=== PATIENT | male | born 1940 | race Caucasian/White ===

== ENCOUNTER 2018-01-28 01:01 | Inpatient (IN) ==
[2018-01-28 01:16] LABS: Baso # (Auto) 0.1 th/mm3 (0.0-0.2); Baso % (Auto) 0.7 % (0.0-2.0); Eos # (Auto) 0.2 th/mm3 (0.0-0.4); Eos % (Auto) 2.2 % (0.0-4.0); Hematocrit 40.8 % (39.0-51.0); Lymph # (Auto) 1.9 th/mm3 (1.0-4.8); Lymph % (Auto) 24.6 % (9.0-44.0); Mean Corpuscular HGB Conc 34.3 % (32.0-36.0); Mean Corpuscular Hemoglobin 32.3 pg (27.0-34.0); Mean Platelet Volume 7.9 fL (7.0-11.0); Mono # (Auto) 0.8 th/mm3 (0.0-0.9); Mono % (Auto) 10.3 % (0.0-8.0); Neut # (Auto) 4.8 th/mm3 (1.8-7.7); Neut % (Auto) 62.2 % (16.0-70.0); Platelet Count 195 th/mm3 (150-450); Red Blood Count 4.34 mil/mm3 (4.50-5.90); Red Cell Distribution Width 13.8 % (11.6-17.2); White Blood Count 7.7 th/mm3 (4.0-11.0)
--- NOTE | 2018-01-28 01:19 | ED ---
HPI General Chief complaint: Stroke Alert Stated complaint: poss stemi alert Time Seen by Provider: 01/28/18 01:04 History of Present Illness HPI narrative: Patient is a 77 year old male brought in by EMS as a stroke alert. Per EMS, patient got out of bed tonight and fell. He originally just wanted help back into bed, but they noticed he had a left sided facial droop and left sided weakness. EMS states last saw him normal at 10:30PM. Patient has history of atrial fibrillation and is on Coumadin, however, he has not taken it for the past week because he was told his INR was too high. He denies any complaints. He says that nothing is wrong and he would like to go home. He has extensive cardiac history, but no history of stroke in the past. Severity is moderate. Related Data Home Medications Medication Instructions Recorded Confirmed amlodipine 2.5 mg PO BID 10/30/17 10/30/17 escitalopram oxalate 20 mg PO DAILY 10/30/17 10/30/17 lansoprazole 30 mg PO DAILY 10/30/17 10/30/17 metoprolol tartrate 25 mg PO BID 10/30/17 10/30/17 usyhbfuzytvu-frp-rpns-FA-vit K 1 tab PO DAILY 10/30/17 10/30/17 [Multi-Day Plus Minerals] omega-3 acid ethyl esters 1 tab PO BID 10/30/17 10/30/17 tadalafil [Cialis] 20 mg PO DAILY PRN 10/30/17 10/30/17 tamsulosin 0.4 mg PO DAILY 10/30/17 10/30/17 warfarin 2.5 mg PO Q OTHER DAY 10/30/17 10/30/17 warfarin 5 mg PO Q OTHER DAY 10/30/17 10/30/17 zolpidem 1 tab PO HS 10/30/17 10/30/17 Previous Rx's Medication Instructions Recorded atorvastatin 40 mg PO HS 30 Days #30 tab 10/30/17 clopidogrel [Plavix] 75 mg PO DAILY 30 Days #30 tab 10/30/17 Allergies Allergy/AdvReac Type Severity Reaction Status Date / Time No Known Allergies Allergy Uncoded 06/28/15 14:57 Review of Systems ROS: all other systems reviewed are negative Constitutional Denies chills and Denies fever(s) Eyes Denies blurry vision ENT Denies sinus pain and Denies sinus pressure Cardiovascular Denies chest pain, Denies syncope and Denies palpitations Respiratory Denies cough and Denies dyspnea Gastrointestinal Denies abdominal pain, Denies nausea and Denies vomiting Musculoskeletal Reports muscle weakness, Denies numbness and Denies tingling Integumentary/Breasts Denies sores and Denies wounds Neurologic Denies headache(s), Denies numbness, Denies tingling and Denies weakness [facility] Medical History Medical History Atrial fibrillation (Acute) Social History Social History Substance History: Unable to Obtain Smoking Status: Unknown if ever smoked How Often Do You Have a Drink Containing Alcohol: Unable to Obtain Recent Travel in [facility] within the Last 8 Weeks: No Recent Out of Country Travel within the Last 8 Weeks: No Exam Narrative Exam Narrative: GENERAL: Awake and alert, in no acute distress. SKIN: Focused skin assessment warm/dry. No wounds or signs of infection. HEAD: Atraumatic. Normocephalic. EYES: Pupils equal and round and reactive. No scleral icterus. EOMI. ENT: Mucous membranes pink and moist. NECK: Trachea midline. No JVD. CARDIOVASCULAR: Regular rate and rhythm. No murmur appreciated. RESPIRATORY: No accessory muscle use. Clear to auscultation. Breath sounds equal bilaterally. GASTROINTESTINAL: Abdomen soft, non-tender, nondistended. MUSCULOSKELETAL: No obvious deformities. No clubbing. No cyanosis. No edema. NEUROLOGICAL: Awake and alert x3. Left-sided facial droop. 0-5 strength in left upper and lower extremities, no effort against gravity. Right Side showed no significant neurologic defect. PSYCHIATRIC: Appropriate mood and affect; insight and judgment normal. Course Initial Documented Vital Signs Pulse Oximetry 100 01/28/18 01:05 Last Documented Vital Signs Temperature 97.8 F 01/28/18 01:10 Pulse Rate 65 01/28/18 02:50 Respiratory Rate 18 01/28/18 02:50 Blood Pressure 136/66 01/28/18 02:50 Pulse Oximetry 98 01/28/18 02:50 NIH Stroke Scale NIHSS Time Completed NIHSS Time Completed: 01:15 NIH Stroke Scale Level of Consciousness: 0-Alert Orientation Questions: 0-Answers both correct Responds to Commands: 0-Both tasks correct Gaze Eye Movement: 0-Horizontal movement WNL Visual Orta: 0-No visual field defect Facial Movement: 3-Complete unilateral palsy Motor Functions Arm LEFT: 3-No effort against gravity Motor Functions Arm RIGHT: 0-No drift Motor Functions Leg LEFT: 3-No effort against gravity Motor Functions Leg RIGHT: 0-No drift Limb Ataxia: 1-Ataxia in one limb Sensory Loss: 1-Mild sensory loss Best Language: 0-Normal Articulation: 1-Mild dysarthia Extinction or Inattention Sensory: 0-Absent Total: 12 Medical Decision Making MDM Narrative Medical decision making narrative: Patient is a 77 year old male, brought in by EMS as a stroke alert. Exam shows no effort against gravity of the left arm or leg, left sided facial droop. Patient placed on monitor and storage bin tender, taken to CT. CT shows no acute bleed. Patient reportedly takes Coumadin, however, has only taken two doses in the past week. CTA concerning for MCA stroke. I discussed with the patient the risks (including severe bleeding) and benefits of TPA at this time. Patient and would like to have the medication administered. TPA given. Patient taken to IR for further management of MCA clot. Admitted to ICU. Medical Screen Exam Complete: Yes Emergency Medical Condition: Yes Differential Diagnosis Differential Diagnosis: CVA vs TIA vs infection Medical Records Medical records reviewed: Yes I reviewed the patient's medical records. Lab Data Lab results reviewed: Yes I reviewed the patient's lab results. Result diagrams: 01/28/18 01:00 Lab Results 01/28/18 01/28/18 01/28/18 Range/Units 01:00 01:00 01:00 WBC 7.7 (4.0-11.0) th/mm3 RBC 4.34 L (4.50-5.90) mil/mm3 Hgb 14.0 (13.0-17.0) gm/dL POC Hgb (Calc) (13.0-17.0) g/dL Hct 40.8 (39.0-51.0) % POC Hct (39-51.0) % MCV 94.0 (80.0-100.0) fL MCH 32.3 (27.0-34.0) pg MCHC 34.3 (32.0-36.0) % RDW 13.8 (11.6-17.2) % Plt Count 195 (150-450) th/mm3 MPV 7.9 (7.0-11.0) fL Neut % (Auto) 62.2 (16.0-70.0) % Lymph % (Auto) 24.6 (9.0-44.0) % [place] % (Auto) 10.3 H (0.0-8.0) % Eos % (Auto) 2.2 (0.0-4.0) % Baso % (Auto) 0.7 (0.0-2.0) % Neut # (Auto) 4.8 (1.8-7.7) th/mm3 Lymph # (Auto) 1.9 (1.0-4.8) th/mm3 [place] # (Auto) 0.8 (0.0-0.9) th/mm3 Eos # (Auto) 0.2 (0.0-0.4) th/mm3 Baso # (Auto) 0.1 (0.0-0.2) th/mm3 WBC Differential . Differential Comment Auto diff final PT 10.7 D (9.8-11.6) sec INR 1.1 Ratio APTT 26.8 (23.4-31.7) sec Fibrinogen 379 H (227-377) mg/dL POC Sodium (137-144) mmol/L POC Potassium (3.6-5.0) mmol/L POC Chloride (102-111) mmol/L POC BUN (5-21) mg/dL POC Creatinine (0.6-1.3) mg/dL POC Glucose (68-110) mg/dL Total Creatine Kinase 70 (39-308) U/L Troponin I Less than 0.02 L (0.02-0.05) ng/mL Urine Color (Yellw/Straw) Urine Clarity (Clear) Urine pH (5.0-8.5) Ur Specific [place] (1.002-1.035) Urine Protein (Neg-Trace) mg/dL Urine Glucose (UA) (Negative) mg/dL Urine Ketones (Negative) mg/dL Urine Occult Blood (Negative) Urine Nitrate (Negative) Urine Bilirubin (Negative) Urine Urobilinogen (Less than 2) mg/dL Ur Leukocyte Esterase (Negative) Urine RBC (0-3) /hpf Urine WBC (0-5) /hpf Urine Mucus (Occasional) /lpf Micro UA Comment Ur Microscopic Review Urine Culture Comments Urine Opiates Screen (Neg) Ur Barbiturates Screen (Neg) Ur Amphetamines Screen (Neg) U Benzodiazepines Scrn (Neg) Urine Cocaine Screen (Neg) U Cannabinoids Screen (Neg) Blood Type Antibody Screen 01/28/18 01/28/18 01/28/18 Range/Units 01:05 01:40 01:40 WBC (4.0-11.0) th/mm3 RBC (4.50-5.90) mil/mm3 Hgb (13.0-17.0) gm/dL POC Hgb (Calc) 14.6 (13.0-17.0) g/dL Hct (39.0-51.0) % POC Hct 43.0 (39-51.0) % MCV (80.0-100.0) fL MCH (27.0-34.0) pg MCHC (32.0-36.0) % RDW (11.6-17.2) % Plt Count (150-450) th/mm3 MPV (7.0-11.0) fL Neut % (Auto) (16.0-70.0) % Lymph % (Auto) (9.0-44.0) % [place] % (Auto) (0.0-8.0) % Eos % (Auto) (0.0-4.0) % Baso % (Auto) (0.0-2.0) % Neut # (Auto) (1.8-7.7) th/mm3 Lymph # (Auto) (1.0-4.8) th/mm3 [place] # (Auto) (0.0-0.9) th/mm3 Eos # (Auto) (0.0-0.4) th/mm3 Baso # (Auto) (0.0-0.2) th/mm3 WBC Differential Differential Comment PT (9.8-11.6) sec INR Ratio APTT (23.4-31.7) sec Fibrinogen (227-377) mg/dL POC Sodium 140 (137-144) mmol/L POC Potassium 4.1 (3.6-5.0) mmol/L POC Chloride 98 L (102-111) mmol/L POC BUN 22 H (5-21) mg/dL POC Creatinine 0.9 (0.6-1.3) mg/dL POC Glucose 96 (68-110) mg/dL Total Creatine Kinase (39-308) U/L Troponin I (0.02-0.05) ng/mL Urine Color (Yellw/Straw) Urine Clarity (Clear) Urine pH (5.0-8.5) Ur Specific [place] (1.002-1.035) Urine Protein (Neg-Trace) mg/dL Urine Glucose (UA) (Negative) mg/dL Urine Ketones (Negative) mg/dL Urine Occult Blood (Negative) Urine Nitrate (Negative) Urine Bilirubin (Negative) Urine Urobilinogen (Less than 2) mg/dL Ur Leukocyte Esterase (Negative) Urine RBC (0-3) /hpf Urine WBC (0-5) /hpf Urine Mucus (Occasional) /lpf Micro UA Comment Ur Microscopic Review Urine Culture Comments Urine Opiates Screen Neg (Neg) Ur Barbiturates Screen Neg (Neg) Ur Amphetamines Screen Neg (Neg) U Benzodiazepines Scrn Neg (Neg) Urine Cocaine Screen Neg (Neg) U Cannabinoids Screen Neg (Neg) Blood Type A Positive Antibody Screen Negative 01/28/18 Range/Units 01:40 WBC (4.0-11.0) th/mm3 RBC (4.50-5.90) mil/mm3 Hgb (13.0-17.0) gm/dL POC Hgb (Calc) (13.0-17.0) g/dL Hct (39.0-51.0) % POC Hct (39-51.0) % MCV (80.0-100.0) fL MCH (27.0-34.0) pg MCHC (32.0-36.0) % RDW (11.6-17.2) % Plt Count (150-450) th/mm3 MPV (7.0-11.0) fL Neut % (Auto) (16.0-70.0) % Lymph % (Auto) (9.0-44.0) % [place] % (Auto) (0.0-8.0) % Eos % (Auto) (0.0-4.0) % Baso % (Auto) (0.0-2.0) % Neut # (Auto) (1.8-7.7) th/mm3 Lymph # (Auto) (1.0-4.8) th/mm3 [place] # (Auto) (0.0-0.9) th/mm3 Eos # (Auto) (0.0-0.4) th/mm3 Baso # (Auto) (0.0-0.2) th/mm3 WBC Differential Differential Comment PT (9.8-11.6) sec INR Ratio APTT (23.4-31.7) sec Fibrinogen (227-377) mg/dL POC Sodium (137-144) mmol/L POC Potassium (3.6-5.0) mmol/L POC Chloride (102-111) mmol/L POC BUN (5-21) mg/dL POC Creatinine (0.6-1.3) mg/dL POC Glucose (68-110) mg/dL Total Creatine Kinase (39-308) U/L Troponin I (0.02-0.05) ng/mL Urine Color Yellow (Yellw/Straw) Urine Clarity Clear (Clear) Urine pH 7.0 (5.0-8.5) Ur Specific [place] 1.030 (1.002-1.035) Urine Protein Negative (Neg-Trace) mg/dL Urine Glucose (UA) Negative (Negative) mg/dL Urine Ketones Negative (Negative) mg/dL Urine Occult Blood Negative (Negative) Urine Nitrate Negative (Negative) Urine Bilirubin Negative (Negative) Urine Urobilinogen Less than 2 (Less than 2) mg/dL Ur Leukocyte Esterase Negative (Negative) Urine RBC 1 (0-3) /hpf Urine WBC Less than 1 (0-5) /hpf Urine Mucus Few H (Occasional) /lpf Micro UA Comment Cath-culture not ind Ur Microscopic Review Not Reportable Urine Culture Comments Cath-cult not ind Urine Opiates Screen (Neg) Ur Barbiturates Screen (Neg) Ur Amphetamines Screen (Neg) U Benzodiazepines Scrn (Neg) Urine Cocaine Screen (Neg) U Cannabinoids Screen (Neg) Blood Type Antibody Screen Imaging Data Radiologist's impression: Chest X-Ray 01/28/18 01:06 CONCLUSION: No acute findings. Head CT 01/28/18 01:06 CONCLUSION: 1. No acute intracranial abnormalities. Report was called by [ Dr. Carvalho to Dr. Condon at 1:46 AM] Head CTA 01/28/18 01:06 CONCLUSION: 1. 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 Findings called by Dr. Schneider to Dr. Pendleton at 1:57 AM Neck CTA 01/28/18 01:06 CONCLUSION: 1. No carotid stenosis. Mild plaque formation around the carotid bifurcations. ECG Data EKG Prior to Arrival: No Attestation: I personally reviewed and interpreted this ECG as follows: Interpretation: ECG shows afib, rate controlled. Discharge Plan Physicians Team ED Provider: Klaudia Condon Primary Care Provider: Warren Ortez Attending Provider: Sandra Cohn Other Providers: Sunny Parsons Rxs /Orders / Referrals /Forms Prescriptions: No Action amlodipine 2.5 mg Tablet 2.5 mg PO BID RF: 0 tamsulosin 0.4 mg Capsule,Extended Release 24hr 0.4 mg PO DAILY RF: 0 lansoprazole 30 mg Capsule,Delayed Release(Dr/Ec) 30 mg PO DAILY RF: 0 warfarin 5 mg Tablet 5 mg PO Q OTHER DAY RF: 0 warfarin 5 mg Tablet 2.5 mg PO Q OTHER DAY RF: 0 metoprolol tartrate 50 mg Tablet 25 mg PO BID RF: 0 zolpidem 10 mg Tablet 1 tab PO HS RF: 0 escitalopram oxalate 20 mg Tablet 20 mg PO DAILY RF: 0 tadalafil [Cialis] 20 mg Tablet 20 mg PO DAILY PRN (Reason: Erectile Dysfunction) RF: 0 omega-3 acid ethyl esters 1 gram Capsule 1 tab PO BID RF: 0 qooitgsmordc-gkh-fagt-FA-vit K [Multi-Day Plus Minerals] 18 mg iron-400 mcg- 25 mcg Tablet 1 tab PO DAILY RF: 0 atorvastatin 40 mg Tablet 40 mg PO HS 30 Days Qty: 30 RF: 3 clopidogrel [Plavix] 75 mg Tablet 75 mg PO DAILY 30 Days Qty: 30 RF: 11 Discharge Interventions Interventions: ED Discharge Assessment Last Done: 01/28/18 03:23 Status ED Status: Discharged Discharge Information Discharge Date/Time: 01/28/18 02:55
[2018-01-28 01:34] LABS: Activated Partial Thrombo Time 26.8 sec (23.4-31.7); INR 1.1 Ratio; Prothrombin Time 10.7 sec (9.8-11.6)
--- NOTE | 2018-01-28 01:47 | CT ---
EXAM DATE: 01/28/2018 1:18 AM EST AGE/SEX: 77 years / Male INDICATIONS: Stroke Alert. Left sided weakness and slurred speech. CLINICAL DATA: This is the patient's initial encounter. Patient reports that signs and symptoms have been present for 1 day and indicates a pain score of Nonresponsive. MEDICAL/SURGICAL HISTORY: Non-responsive. Non-responsive. RADIATION DOSE: 56.64 CTDI (mGy) COMPARISON: No prior exams available for comparison. TECHNIQUE: CT of the head without contrast. Using automated exposure control and adjustment of the mA and/or kV according to patient size, radiation dose was kept as low as reasonably achievable to ob tain optimal diagnostic quality images. DICOM format image data is available electronically for revi ew and comparison. FINDINGS: Cerebrum: The ventricles are normal for age. No evidence of midline shift, mass lesion, hemorrhage or acute infarction. No extraaxial fluid collections are seen. Posterior Fossa: The cerebellum and brainstem are intact. The 4th ventricle is midline. The cerebe llopontine angle is unremarkable. Extracranial: The visualized portion of the orbits is intact. Skull: The calvaria is intact. No evidence of skull fracture. CONCLUSION: 1. No acute intracranial abnormalities. Report was called by [ Dr. Carvalho to Dr. Condon at 1:46 AM] Electronically signed by: Nathan Carvalho MD 01/28/2018 1:46 AM EST
--- NOTE | 2018-01-28 01:48 | XR ---
EXAM DATE: 01/28/2018 1:42 AM EST AGE/SEX: 77 years / Male INDICATIONS: Short of breath. Stroke alert. CLINICAL DATA: This is the patient's initial encounter. Patient reports that signs and symptoms have been present for 1 day and indicates a pain score of 0/10. MEDICAL/SURGICAL HISTORY: Non-responsive. Non-responsive. COMPARISON: No prior exams available for comparison. FINDINGS: A single AP view of the chest demonstrates the lungs to be symmetrically aerated without evidence of mass, infiltrate or effusion. The cardiomediastinal contours are unremarkable. Osseous structures a re intact. Previous fusion lower cervical spine. CONCLUSION: No acute findings. Electronically signed by: Nathan Carvalho MD 01/28/2018 1:47 AM EST
--- NOTE | 2018-01-28 01:57 | CT ---
EXAM DATE: 01/28/2018 1:32 AM EST AGE/SEX: 77 years / Male INDICATIONS: Left sided weakness with slurred speech. CLINICAL DATA: This is the patient's initial encounter. Patient reports that signs and symptoms have been present for 1 day and indicates a pain score of Nonresponsive. MEDICAL/SURGICAL HISTORY: Non-responsive. Non-responsive. RADIATION DOSE: 10.55 CTDI (mGy) ; Combined studies COMPARISON: [facility], CTA HEAD W CONTRAST W 3D, 01/28/2018. . TECHNIQUE: Volumetric scanning was performed using a multirow detector CT scanner during bolus infus ion of 80 ml Visipaque 320 (iodixanol) nonionic water-soluble contrast as a cumulative dose for mult iple exams. The data was postprocessed with a variety of visualization algorithms including full-vo lume maximum intensity projection, multiplanar sliding thin-slab reformation, curved-planar reformati on, and surface-rendering techniques. Using automated exposure control and adjustment of the mA and/ or kV according to patient size, radiation dose was kept as low as reasonably achievable to obtain op timal diagnostic quality images. DICOM format image data is available electronically for review and comparison. Percent stenosis is calculated using the diameter of the stenotic region over the diameter of the nor mal distal internal carotid artery. FINDINGS: Great vessel origins are patent. Both common carotid arteries are patent. There is atherosclerotic pl aque at both carotid bifurcations without evidence for hemodynamically significant stenosis. Remainde r of the internal carotid arteries are patent. CONCLUSION: 1. No carotid stenosis. Mild plaque formation around the carotid bifurcations. Electronically signed by: Nathan Carvalho MD 01/28/2018 1:55 AM EST
[2018-01-28 01:59] LABS: Creatine Kinase 70 U/L (39-308)
--- NOTE | 2018-01-28 01:59 | CT ---
EXAM DATE: 01/28/2018 1:26 AM EST AGE/SEX: 77 years / Male INDICATIONS: CLINICAL DATA: This is the patient's encounter. Patient reports that signs and symptoms have been pr esent for and indicates a pain score of . MEDICAL/SURGICAL HISTORY: RADIATION DOSE: CTDI (mGy) COMPARISON: No prior exams available for comparison. TECHNIQUE: Volumetric scanning was performed using a multi-row detector CT scanner during bolus infu suzette of ml nonionic water-soluble contrast as a . The data was post processed with a variety of vis ualization algorithms including full volume maximum intensity projection, multi-planar sliding thin s lab reformation, curved planar reformation, and surface rendering techniques. Using automated exposu re control and adjustment of the mA and/or kV according to patient size, radiation dose was kept as l ow as reasonably achievable to obtain optimal diagnostic quality images. DICOM format image data is available electronically for review and comparison. FINDINGS: There is occlusion of the right middle cerebral artery proximally. Temporal branch is patent inferior ly. Left middle cerebral, both anterior cerebral arteries are patent. There is origin right [facility] . Both hospital administrator are patent. CONCLUSION: 1. 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 Findings called by Dr. Schneider to Dr. Ranjith real at 1:57 AM Electronically signed by: Nathan Carvalho MD 01/28/2018 1:58 AM EST
[2018-01-28] MEDS: Sod Chloride 0.9% Inj 1,000 ML IV.CONT SCH (02:20)
[2018-01-28] MEDS ORDERED: Lidocaine 1%/Epinephrine 1:100,000 Inj 20 ML Vial ONE (02:58)
[2018-01-28] MEDS ORDERED: Bisacodyl 10 MG Supp RECTAL PRN (03:00)
[2018-01-28 03:51] LABS: Bilirubin,Urine Negative (Negative); Clarity,Urine Clear (Clear); Color,Urine Yellow (Yellw/Straw); Glucose,Urine (UA) Negative (Negative); Leukocyte Esterase,Urine Negative (Negative); Mucus,Urine Few /lpf (Occasional); Nitrite,Urine Negative (Negative)
[2018-01-28 03:54] LABS: Amphetamine Screen,Urine Neg (Neg); Barbiturate Screen,Urine Neg (Neg); Cannabinoid Screen,Urine Neg (Neg); Cocaine Screen,Urine Neg (Neg)
[2018-01-28 03:59] LABS: Opiate Screen,Urine Neg (Neg)
[2018-01-28] MEDS ORDERED: Chlorhexidine Gluconate 2% 1 Pack (2 Cloths) TOPICAL PRN (04:00)
--- NOTE | 2018-01-28 04:11 | P.RAD ---
Post Procedure Progress Note - Pre Procedure Diagnosis (1) Acute CVA (cerebrovascular accident) - Post Procedure Diagnosis (1) Acute CVA (cerebrovascular accident) - Procedure Information Procedure Date: 01/28/18 Supervising Radiologist: Sanjeev Schneider Jr, MD Proceduralist/Assist: Maggie Baker Anesthesia: General - Plan of Activity Patient to Unit: Critical Care Patient Condition: Fair See PACS Report for procedural detail/treatment. Vascular - Arterial Procedure right Cerebral Procedure: Angiogram, Embolectomy - Additional Information Findings: Acute R M1 MCA occlusion. Successful embolectomy with reestablishment of flow thru the previously occluded segment. No residual clot seen. Plan: To [facility].
[2018-01-28] MEDS ORDERED: Propofol Inj 500 MG/50 ML Vial ONE (04:16)
[2018-01-28] MEDS ORDERED: Alteplase Drip 81 MG in Syringe/Bag 1 EACH IV.SIG ONE (04:22)
[2018-01-28] MEDS ORDERED: Alteplase Bolus 9 MG/9 ML Syringe IV.PUSH ONE (04:22)
[2018-01-28] MEDS ORDERED: niCARdipine Inj 25 MG in Sodium Chlor 0.9% Inj 240 ML IV.CONT PRN (04:23)
--- NOTE | 2018-01-28 04:38 | P.HPCC ---
History of Present Illness Service: Critical care medicine Primary Care Physician: Warren Ortez MD Chief Complaint: Left sided weakness History of Present Illness: Patient is a 77 year past medical history significant for atrial fibrillation on Coumadin, hypertension who was brought to emergency department as a stroke alert. Last seen normal at 10:30 PM yesterday night. Apparently around midnight, patient got out of bed tonight and fell. He left sided facial droop and left sided weakness. He was not taking Coumadin last week due to supratherapeutic INR, restarted just one day before. CT of the head was negative, CTA head showed occlusion of the right middle cerebral artery proximally. Neurology Dr. Pendleton was contacted. Patient received TPA per protocol post TPA was taken to IR for acute R M1 MCA occlusion. Underwent successful embolectomy with reestablishment of flow thru the previously occluded right M1 segment. Patient was intubated for the procedure I evaluated the patient in the ICU postprocedure. He is intubated sedated received neuromuscular paralysis with vecuronium 5 minutes before limiting neuro exam. Start weaning trials based on neuro recovery - Diagnosis (1) Acute right MCA stroke (2) Acute respiratory failure (3) Atrial fibrillation (4) Hypertension Inpatient Certification: I certify that the inpatient services were ordered in accordance with Medicare regulations governing the order. 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 - Medical History Medical History: Medical History (Last Reviewed 01/28/18 @ 04:17 by Klaudia Condon MD) Atrial fibrillation - Tobacco History Smoking Status: Unknown if ever smoked - Alcohol History How Often Do You Have a Drink Containing Alcohol: Unable to Obtain - Substance Use History Substance History: Unable to Obtain - Travel History Recent Travel in the [place] Within the Last 8 Weeks: No Recent Travel Out of the Country Within the Last 8 Weeks: No - Immunization History Tetanus Immunization: Unable to Assess Medications and Allergies Active Medications: Active Medications Albuterol (Duoneb Neb (Prn)) 1 ampul NEB Q2HR NEB PRN PRN Reason: SHORTNESS OF BREATH Bisacodyl (Dulcolax Supp) 10 mg RECTAL DAILY PRN PRN Reason: SEVERE CONSITIPATION Chlorhexidine Gluconate (Chlorhexidine 2% Cloth) 3 pack TOPICAL DAILY@0400 [facility] Stop: 02/02/18 03:59 Chlorhexidine Gluconate (Chlorhexidine 2% Cloth) 3 pack TOPICAL DAILY@0400 PRN PRN Reason: Extra cloth needed Stop: 02/02/18 03:59 Chlorhexidine Gluconate (Peridex 0.12% Oral Kit) 15 ml OROPHARYNG BID@0800, 2000 [facility] Famotidine (Pepcid Pf Inj) 20 mg IV.PUSH Q12HR [facility] Sodium Chloride (Ns Inj) 1,000 mls @ 70 mls/hr IV.CONT .[id number] [facility] Nicardipine HCl 25 mg/ Sodium (Chloride) 250 mls @ 50 mls/hr IV.CONT TITRATE PRN; Protocol PRN Reason: Per Protocol Miscellaneous Medication () 1 each OROPHARYNG 0000,0400,1200,1600 [facility] Sodium Chloride (Ns Flush) 2 ml IV.FLUSH PRN PRN PRN Reason: FLUSH AFTER USING IV ACCESS Sodium Chloride (Ns Flush) 2 ml IV.FLUSH BID [facility] Allergies Allergy/AdvReac Type Severity Reaction Status Date / Time No Known Allergies Allergy Uncoded 06/28/15 14:57 Home Medications Medication Instructions Recorded Confirmed Type amlodipine 2.5 mg PO BID 10/30/17 10/30/17 History escitalopram oxalate 20 mg PO DAILY 10/30/17 10/30/17 History lansoprazole 30 mg PO DAILY 10/30/17 10/30/17 History metoprolol tartrate 25 mg PO BID 10/30/17 10/30/17 History dduwpxaxblua-qys-fwsw-FA-vit K 1 tab PO DAILY 10/30/17 10/30/17 History [Multi-Day Plus Minerals] omega-3 acid ethyl esters 1 tab PO BID 10/30/17 10/30/17 History tadalafil [Cialis] 20 mg PO DAILY PRN 10/30/17 10/30/17 History tamsulosin 0.4 mg PO DAILY 10/30/17 10/30/17 History warfarin 2.5 mg PO Q OTHER DAY 10/30/17 10/30/17 History warfarin 5 mg PO Q OTHER DAY 10/30/17 10/30/17 History zolpidem 1 tab PO HS 10/30/17 10/30/17 History Results - Labs CBC & Chem 7: 01/28/18 01:00 Labs: Short CBC 01/28/18 Range/Units 01:00 WBC 7.7 (4.0-11.0) th/mm3 Hgb 14.0 (13.0-17.0) gm/dL Hct 40.8 (39.0-51.0) % Plt Count 195 (150-450) th/mm3 Cardiac Enzymes 01/28/18 Range/Units 01:00 Total Creatine Kinase 70 (39-308) U/L Troponin I Less than 0.02 L (0.02-0.05) ng/mL Urine 01/28/18 Range/Units 01:40 Urine Color Yellow (Yellw/Straw) Urine Clarity Clear (Clear) Urine pH 7.0 (5.0-8.5) Ur Specific [place] 1.030 (1.002-1.035) Urine Protein Negative (Neg-Trace) mg/dL Urine Glucose (UA) Negative (Negative) mg/dL - Imaging Impressions Chest X-Ray 01/28/18 01:06 CONCLUSION: No acute findings. Head CT 01/28/18 01:06 CONCLUSION: 1. No acute intracranial abnormalities. Report was called by [ Dr. Carvalho to Dr. Condon at 1:46 AM] Head CTA 01/28/18 01:06 CONCLUSION: 1. 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 Findings called by Dr. Schneider to Dr. Pendleton at 1:57 AM Neck CTA 01/28/18 01:06 CONCLUSION: 1. No carotid stenosis. Mild plaque formation around the carotid bifurcations. Exam Vital signs: Vital Signs 01/28/18 01:05 01/28/18 01:06 01/28/18 01:10 Temperature 97.8 F Pulse Rate 78 Respiratory Rate 16 Blood Pressure 160/86 H Pulse Oximetry 100 99 100 01/28/18 01:52 01/28/18 02:10 01/28/18 02:25 Temperature Pulse Rate 50 L 62 60 Respiratory Rate 16 22 Blood Pressure 144/80 H 180/84 H 144/66 H Pulse Oximetry 98 99 98 01/28/18 02:50 Temperature Pulse Rate 65 Respiratory Rate 18 Blood Pressure 136/66 Pulse Oximetry 98 Intake & Output 01/27/18 01/27/18 01/28/18 06:59 18:59 06:59 Weight 105.2 kg Narrative: GENERAL: Patient is intubated currently under neuromuscular paralysis SKIN: Focused skin assessment warm/dry. HEAD: Atraumatic. Normocephalic. EYES: Pupils equal and round and reactive. ENT: Orotracheally intubated NECK: Trachea midline. No JVD. CARDIOVASCULAR: S1-S2 normal no murmurs. No murmur appreciated. RESPIRATORY: PRVC/AC. Clear to auscultation. Breath sounds equal bilaterally. GASTROINTESTINAL: Abdomen soft, nondistended. MUSCULOSKELETAL: No obvious deformities. No clubbing. NEUROLOGICAL: Patient is intubated sedated and neuromuscularly paralyzed post IR procedure. This limits neuro exam. Septic Shock Reassessment Septic shock perfusion: reassessment completed Caprini VTE Risk Assessment Caprini VTE Risk Assessment: Moderate/High Risk (score >= 2) Caprini Risk Assessment Model: Point Value = 1 Point Value = 2 Point Value = 3 Point Value = 5 Age 41-60 Minor surgery BMI > 25 kg/m2 Swollen legs Varicose veins or History of unexplained or recurrent spontaneous Oral contraceptives or hormone replacement Sepsis (< 1 month) Serious lung disease, including pneumonia (< 1 month) Abnormal pulmonary function Acute myocardial infarction Congestive heart failure (< 1 month) History of inflammatory bowel disease Medical patient at bed rest Age 61-74 Arthroscopic surgery Major open surgery (> 45 min) Laparoscopic surgery (> 45 min) Malignancy Confined to bed (> 72 hours) Immobilizing plaster cast Central venous access Age >= 75 History of VTE Family history of VTE Factor V Leiden Prothrombin [id number] Lupus anticoagulant Anticardiolipin antibodies Elevated serum homocysteine Heparin-induced thrombocytopenia Other congenital or acquired thrombophilia Stroke (< 1 month) Elective arthroplasty Hip, pelvis, or leg fracture Acute spinal cord injury (< 1 month) Prophylaxis Regimen: Total Risk Factor Score Risk Level Prophylaxis Regimen 0-1 Low Early ambulation 2 Moderate Order ONE of the following: *Sequential Compression Device (SCD) *Heparin 5000 units SQ BID 3-4 Higher Order ONE of the following medications: *Heparin 5000 units SQ TID *Enoxaparin/Lovenox 40 mg SQ daily (WT < 150 kg, CrCl > 30 mL/min) *Enoxaparin/Lovenox 30 mg SQ daily (WT < 150 kg, CrCl > 10-29 mL/min) *Enoxaparin/Lovenox 30 mg SQ BID (WT < 150 kg, CrCl > 30 mL/min) AND/OR *Sequential Compression Device (SCD) 5 or more Highest Order ONE of the following medications: *Heparin 5000 units SQ TID (Preferred with Epidurals) *Enoxaparin/Lovenox 40 mg SQ daily (WT < 150 kg, CrCl > 30 mL/min) *Enoxaparin/Lovenox 30 mg SQ daily (WT < 150 kg, CrCl > 10-29 mL/min) *Enoxaparin/Lovenox 30 mg SQ BID (WT < 150 kg, CrCl > 30 mL/min) AND *Sequential Compression Device (SCD) Assessment and Plan - Problem List (1) Acute right MCA stroke Code(s): I63.511 - Cerebral infarction due to unspecified occlusion or stenosis of right middle cerebral artery Status: Acute (2) Acute respiratory failure Code(s): J96.00 - Acute respiratory failure, unspecified whether with hypoxia or hypercapnia Status: Acute (3) Atrial fibrillation Code(s): I48.91 - Unspecified atrial fibrillation Status: Chronic (4) Hypertension Code(s): I10 - Essential (primary) hypertension Status: Chronic - Assessment and Plan Plan: NEURO: Acute right MCA stroke Acute right M1 segment occlusion -Propofol and fentanyl for sedation and ventilator synchrony -Status post TPA per protocol -Status post successful embolectomy with reestablishment of flow -Follow-up post TPA protocol -Repeat CT of the head in 24-hour -Antiplatelet therapy, statin after 24 hours -Anticoagulation once cleared by neurology RESP: Acute respiratory failure Anterior airway per anesthesia -PRVC/AC, -Ventilator bundle -DuoNeb as needed -Currently patient is under neuromuscular paralysis, SBT when appropriate CV: Chronic atrial fibrillation Hypertension -Normal saline IV fluids at 75 ml per hour -Keep systolic blood pressure less than 180/105 -Hold amlodipine hold Coumadin -IV labetalol PRN for SBP above 180 GI: -N.p.o., IV famotidine : -Monitor renal function closely. Strict intake output ID: -No antibiotics at this time HEME: -Monitor CBC, coags ENDO: -Electrolyte replacement per protocol PROPH: -Bilateral lower extremity SCDs. Chemical DVT prophylaxis contraindicated at this time due to TPA administration -IV famotidine LINES: -Utilize peripheral IVs, central line if needed CC time 35 min
[2018-01-28] MEDS ORDERED: Labetalol HCl Inj 100 MG/20 ML Vial IV.PUSH PRN (04:54)
[2018-01-28 05:52] LABS: ABG Base Excess 2.7 mmol/L (-2-2); ABG PCO2 40 mmHg (38-42); ABG PO2 88 mmHg (61-120)
[2018-01-28] MEDS ORDERED: Propofol 1000 mg/100 ml Inj 1,000 MG/100 ML BOTTLE IV.CONT PRN (07:22)
[2018-01-28] MEDS: Chlorhexidine 0.12% Oral Kit 15 ML UDC OROPHARYNG SCH ×2 (08:33→20:24)
[2018-01-28] MEDS: Chlorhexidine Gluconate 2% 1 Pack (2 Cloths) TOPICAL SCH (09:02)
--- NOTE | 2018-01-28 09:07 | P.CONNEU ---
History of Present Illness Service: Neurology Primary Care Provider: Warren Ortez MD Chief Complaint: Left sided weakness History of Present Illness: 77-year-old male admitted for stroke. Presented stroke alert with left sided weakness approximately 3-1/2 hours prior to ER arrival. CT brain scan negative for any acute lesion. CTA brain carotids demonstrated right MCA occlusion. He is on Coumadin but had not had it for approximately a week. His INR is 1.1. IV TPA discussed with the spouse risks and benefits discussed including 6% chance of ICH, systemic bleeding, . Alternatives were discussed. She agreed to treatment. Case discussed with ER physician and interventionalist multiple times. He then went for interventional and successful right MCA thrombectomy. 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 - Medical History Medical History: Medical History (Last Reviewed 01/28/18 @ 08:52 by Jem Bosch) Atrial fibrillation - Tobacco History Smoking Status: Unknown if ever smoked - Alcohol History How Often Do You Have a Drink Containing Alcohol: Unable to Obtain - Substance Use History Substance History: Unable to Obtain - Travel History Recent Travel in the [facility] Within the Last 8 Weeks: No Recent Travel Out of the Country Within the Last 8 Weeks: No - Immunization History Tetanus Immunization: Unable to Assess Medications and Allergies Active Medications: Active Medications Albuterol (Duoneb Neb (Prn)) 1 ampul NEB Q2HR NEB PRN PRN Reason: SHORTNESS OF BREATH Bisacodyl (Dulcolax Supp) 10 mg RECTAL DAILY PRN PRN Reason: SEVERE CONSITIPATION Chlorhexidine Gluconate (Chlorhexidine 2% Cloth) 3 pack TOPICAL DAILY@0400 [facility] Stop: 02/02/18 03:59 Chlorhexidine Gluconate (Chlorhexidine 2% Cloth) 3 pack TOPICAL DAILY@0400 PRN PRN Reason: Extra cloth needed Stop: 02/02/18 03:59 Chlorhexidine Gluconate (Peridex 0.12% Oral Kit) 15 ml OROPHARYNG BID@0800, 2000 [facility] Last Admin: 01/28/18 08:33 Dose: 15 ml Famotidine (Pepcid Pf Inj) 20 mg IV.PUSH Q12HR [facility] Sodium Chloride (Ns Inj) 1,000 mls @ 70 mls/hr IV.CONT .[id number] [facility] Last Admin: 01/28/18 02:20 Dose: 70 mls/hr Nicardipine HCl 25 mg/ Sodium (Chloride) 250 mls @ 50 mls/hr IV.CONT TITRATE PRN; Protocol PRN Reason: Per Protocol Propofol (Diprivan 1000 Mg/100 Ml Inj) 1,000 mg in 100 mls @ 3.306 mls/hr IV.CONT TITRATE PRN; Protocol PRN Reason: Per Protocol Last Titration: 01/28/18 08:40 Dose: 0 mcg/kg/min, 0 mls/hr Labetalol HCl (Trandate Inj) 20 mg IV.PUSH Q4H PRN PRN Reason: SBP>180, DBP>100, HR>65 Miscellaneous Medication () 1 each OROPHARYNG 0000,0400,1200,1600 [facility] Sodium Chloride (Ns Flush) 2 ml IV.FLUSH PRN PRN PRN Reason: FLUSH AFTER USING IV ACCESS Sodium Chloride (Ns Flush) 2 ml IV.FLUSH BID [facility] Last Admin: 01/28/18 08:33 Dose: 2 ml Allergies Allergy/AdvReac Type Severity Reaction Status Date / Time No Known Allergies Allergy Uncoded 06/28/15 14:57 Home Medications Medication Instructions Recorded Confirmed Type amlodipine 2.5 mg PO BID 10/30/17 10/30/17 History escitalopram oxalate 20 mg PO DAILY 10/30/17 10/30/17 History lansoprazole 30 mg PO DAILY 10/30/17 10/30/17 History metoprolol tartrate 25 mg PO BID 10/30/17 10/30/17 History nyyuipobfnpr-ocd-ybuc-FA-vit K 1 tab PO DAILY 10/30/17 10/30/17 History [Multi-Day Plus Minerals] omega-3 acid ethyl esters 1 tab PO BID 10/30/17 10/30/17 History tadalafil [Cialis] 20 mg PO DAILY PRN 10/30/17 10/30/17 History tamsulosin 0.4 mg PO DAILY 10/30/17 10/30/17 History warfarin 2.5 mg PO Q OTHER DAY 10/30/17 10/30/17 History warfarin 5 mg PO Q OTHER DAY 10/30/17 10/30/17 History zolpidem 1 tab PO HS 10/30/17 10/30/17 History Exam Vital signs: Vital Signs 01/28/18 01:05 01/28/18 01:06 01/28/18 01:10 Temperature 97.8 F Pulse Rate 78 Respiratory Rate 16 Blood Pressure 160/86 H Pulse Oximetry 100 99 100 01/28/18 01:52 01/28/18 02:10 01/28/18 02:25 Temperature Pulse Rate 50 L 62 60 Respiratory Rate 16 22 Blood Pressure 144/80 H 180/84 H 144/66 H Pulse Oximetry 98 99 98 01/28/18 02:50 01/28/18 04:30 01/28/18 06:00 Temperature Pulse Rate 65 80 98 H Respiratory Rate 18 Blood Pressure 136/66 Pulse Oximetry 98 01/28/18 06:30 01/28/18 06:45 01/28/18 07:00 Temperature Pulse Rate 85 77 75 Respiratory Rate 38 H 17 24 Blood Pressure 148/78 H 137/80 138/67 Pulse Oximetry 99 98 99 01/28/18 07:15 01/28/18 08:32 Temperature Pulse Rate 73 Respiratory Rate 17 16 Blood Pressure 125/72 Pulse Oximetry 99 99 Intake & Output 01/27/18 01/28/18 01/28/18 18:59 06:59 18:59 Output Total 325 / 325 Balance -325 / -325 Weight 105.2 kg 110.2 kg Output: Urine Amount (Catheter) 325 / 325 condom catheter 325 / 325 Other: Weight On Admission 110.2 kg Narrative: GENERAL: in NAD, SKIN: Warm and dry. HEAD: Atraumatic. Normocephalic. ENT: No nasal bleeding or discharge. Mucous membranes pink and moist. NECK: Trachea midline. No JVD. CARDIOVASCULAR: Regular rate and rhythm. RESPIRATORY: No accessory muscle use. GASTROINTESTINAL: Abdomen soft, non-tender, nondistended. MUSCULOSKELETAL: Extremities without clubbing, cyanosis, or edema. No obvious deformities. NEUROLOGICAL: Intubated, off sedation he awakens follows motor request, no gaze deviation pupils very sluggishly reactive appearance of opacities bilateral, appears to have decreased left nasolabial fold, right side 5 out of 5 left lower extremities able raise to gravity strength 3 out of 5, left upper extremity 2-3 out of 5 was able to raise briefly, further sensory cerebellar testing limited PSYCHIATRIC: Intubated - Constitutional no acute distress - Routine HEENT Exam Head: Present: normocephalic Results - Labs CBC & Chem 7: 01/28/18 01:00 Labs: Laboratory Results - last 24 hr 01/28/18 01/28/18 01/28/18 01:00 01:00 01:00 WBC 7.7 RBC 4.34 L Hgb 14.0 POC Hgb (Calc) Hct 40.8 POC Hct MCV 94.0 MCH 32.3 MCHC 34.3 RDW 13.8 Plt Count 195 MPV 7.9 Neut % (Auto) 62.2 Lymph % (Auto) 24.6 [place] % (Auto) 10.3 H Eos % (Auto) 2.2 Baso % (Auto) 0.7 Neut # (Auto) 4.8 Lymph # (Auto) 1.9 [place] # (Auto) 0.8 Eos # (Auto) 0.2 Baso # (Auto) 0.1 WBC Differential . Differential Comment Auto diff final PT 10.7 D INR 1.1 APTT 26.8 Fibrinogen 379 H Puncture Site Patient Temperature O2 Saturation ABG pH ABG pCO2 ABG pO2 ABG HCO3 ABG O2 Content ABG Base Excess ABG Methemoglobin Hemoglobin Carboxyhemoglobin O2 Delivery Device Vent Setting Inspired O2 Critical Value POC Sodium POC Potassium POC Chloride POC BUN POC Creatinine POC Glucose Total Creatine Kinase 70 Troponin I Less than 0.02 L Urine Color Urine Clarity Urine pH Ur Specific [place] Urine Protein Urine Glucose (UA) Urine Ketones Urine Occult Blood Urine Nitrate Urine Bilirubin Urine Urobilinogen Ur Leukocyte Esterase Urine RBC Urine WBC Urine Mucus Micro UA Comment Ur Microscopic Review Urine Culture Comments Urine Opiates Screen Ur Barbiturates Screen Ur Amphetamines Screen U Benzodiazepines Scrn Urine Cocaine Screen U Cannabinoids Screen Blood Type Antibody Screen 01/28/18 01/28/18 01/28/18 01:05 01:40 01:40 WBC RBC Hgb POC Hgb (Calc) 14.6 Hct POC Hct 43.0 MCV MCH MCHC RDW Plt Count MPV Neut % (Auto) Lymph % (Auto) [place] % (Auto) Eos % (Auto) Baso % (Auto) Neut # (Auto) Lymph # (Auto) [place] # (Auto) Eos # (Auto) Baso # (Auto) WBC Differential Differential Comment PT INR APTT Fibrinogen Puncture Site Patient Temperature O2 Saturation ABG pH ABG pCO2 ABG pO2 ABG HCO3 ABG O2 Content ABG Base Excess ABG Methemoglobin Hemoglobin Carboxyhemoglobin O2 Delivery Device Vent Setting Inspired O2 Critical Value POC Sodium 140 POC Potassium 4.1 POC Chloride 98 L POC BUN 22 H POC Creatinine 0.9 POC Glucose 96 Total Creatine Kinase Troponin I Urine Color Urine Clarity Urine pH Ur Specific [place] Urine Protein Urine Glucose (UA) Urine Ketones Urine Occult Blood Urine Nitrate Urine Bilirubin Urine Urobilinogen Ur Leukocyte Esterase Urine RBC Urine WBC Urine Mucus Micro UA Comment Ur Microscopic Review Urine Culture Comments Urine Opiates Screen Neg Ur Barbiturates Screen Neg Ur Amphetamines Screen Neg U Benzodiazepines Scrn Neg Urine Cocaine Screen Neg U Cannabinoids Screen Neg Blood Type A Positive Antibody Screen Negative 01/28/18 01/28/18 01:40 05:39 WBC RBC Hgb POC Hgb (Calc) Hct POC Hct MCV MCH MCHC RDW Plt Count MPV Neut % (Auto) Lymph % (Auto) [place] % (Auto) Eos % (Auto) Baso % (Auto) Neut # (Auto) Lymph # (Auto) [place] # (Auto) Eos # (Auto) Baso # (Auto) WBC Differential Differential Comment PT INR APTT Fibrinogen Puncture Site Left brachial Patient Temperature 98.6 O2 Saturation 95 ABG pH 7.44 H ABG pCO2 40 ABG pO2 88 ABG HCO3 27 H ABG O2 Content 20.5 H ABG Base Excess 2.7 H ABG Methemoglobin 1.2 Hemoglobin 15.3 Carboxyhemoglobin 1.4 O2 Delivery Device Ventilator Vent Setting See comment Inspired O2 40 Critical Value No POC Sodium POC Potassium POC Chloride POC BUN POC Creatinine POC Glucose Total Creatine Kinase Troponin I Urine Color Yellow Urine Clarity Clear Urine pH 7.0 Ur Specific [place] 1.030 Urine Protein Negative Urine Glucose (UA) Negative Urine Ketones Negative Urine Occult Blood Negative Urine Nitrate Negative Urine Bilirubin Negative Urine Urobilinogen Less than 2 Ur Leukocyte Esterase Negative Urine RBC 1 Urine WBC Less than 1 Urine Mucus Few H Micro UA Comment Cath-culture not ind Ur Microscopic Review Not Reportable Urine Culture Comments Cath-cult not ind Urine Opiates Screen Ur Barbiturates Screen Ur Amphetamines Screen U Benzodiazepines Scrn Urine Cocaine Screen U Cannabinoids Screen Blood Type Antibody Screen - Imaging Impressions Chest X-Ray 01/28/18 01:06 CONCLUSION: No acute findings. Head CT 01/28/18 01:06 CONCLUSION: 1. No acute intracranial abnormalities. Report was called by [ Dr. Carvalho to Dr. Condon at 1:46 AM] Head CTA 01/28/18 01:06 CONCLUSION: 1. 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 Findings called by Dr. Schnedier to Dr. Pendleton at 1:57 AM Neck CTA 01/28/18 01:06 CONCLUSION: 1. No carotid stenosis. Mild plaque formation around the carotid bifurcations. Review/Management - Diagnosis (1) Acute right MCA stroke Code(s): I63.511 - Cerebral infarction due to unspecified occlusion or stenosis of right middle cerebral artery Status: Acute Current Visit: Yes (2) Acute respiratory failure Code(s): J96.00 - Acute respiratory failure, unspecified whether with hypoxia or hypercapnia Status: Acute Current Visit: Yes (3) Atrial fibrillation Code(s): I48.91 - Unspecified atrial fibrillation Status: Chronic Current Visit: Yes (4) Hypertension Code(s): I10 - Essential (primary) hypertension Status: Chronic Current Visit: Yes - Review/Management Plan: Status post IV TPA, right MCA thrombectomy Likely cardioembolic infarct Appears to have some improvement since initial presentation where he is hemiplegic and unable to move the left side leg greater than arm Recommendations Post TPA order set Blood pressure less than 180/100 No blood thinners for 24 hours post TPA Follow-up CT brain noncontrast 24-hour nam MRI brain 2D echo Fasting lipids HbA1c SCDs Extubation as feasible per critical care Discussed with patient spouse Appreciate critical care
--- NOTE | 2018-01-28 09:46 | ECG ---
Date Performed: 01/28/2018 Time Performed: 01:29:16 PTAGE: 77 years EKG: ATRIAL FIBRILLATION WITH SLOW VENTRICULAR RESPONSE MARKED LEFT AXIS DEVIATION LOW QRS VOLTA GE IN PRECORDIAL LEADS PATTERN CONSISTENT WITH PULMONARY DISEASE INCOMPLETE RIGHT BUNDLE BRANCH BLOCK SEPTAL MYOCARDIAL INFARCTION ABNORMAL ECG NO PREVIOUS TRACING DOCTOR: Tobi Pepper Interpretating Date/Time 01/28/2018 09:45:17
[2018-01-28 10:09] LABS: Chol/HDL Ratio 5.31 Ratio; HDL Cholesterol 26.7 mg/dL (40.0-60.0)
[2018-01-28] MEDS: Famotidine PF Inj 20 MG/2 ML Vial IV.PUSH SCH ×2 (11:23→20:27)
--- NOTE | 2018-01-28 11:43 | IR ---
EXAM DATE: 01/28/2018 10:09 AM EST AGE/SEX: 77 years / Male INDICATIONS: Right M1 and proximal M2 occlusion with acute CVA and left hemiparesis. Patient approxi mately 3 hours out. CLINICAL DATA: This is the patient's initial encounter. Patient reports that signs and symptoms have been present for 1 day and indicates a pain score of 0/10. MEDICAL/SURGICAL HISTORY: . A-Fib, CAD, HTN, BPH, Kidney Stones, Cataracts, Cervical spine dege neration, Diverticulosis, Hyperlipidemia . Colonoscopy, Diagnostic Esophagogastroduodenoscopy, Neck Surgery, Lithotripsy, Tonsillectomy. COMPARISON: No prior exams available for comparison. FLUORO TIME (min): 6.3 IMAGE SERIES: 6 ACCESS SITE: Right femoral artery CONTRAST (cc): 45 Visipaque (iodixanol) MEDICATION(S): 2 g cefazolin (Ancef) IV Anesthesia and pain control was provided by the Anesthesia department. DEVICE(S): Right Middle Cerebral (M1), React 68 Catheter. Right common femoral artery Angio-Seal 6 FR . . TIMELINE: Interventional Team Called: 0206 Interventional Team Arrived: 0220 Interventional Team Ready 0220 Patient Arrival: 0300 Groin Puncture: [phone] Recanalization: 0349 PROCEDURE : 1. Ultrasound-guided puncture of the access site. 2. Angiography of the access site prior to closure device. 3. Conscious sedation with continuous EKG and Oximetry monitoring. 4. Percutaneous closure of the access site. 5. Angiography of the right internal carotid artery 6. Mechanical thrombectomy of the right M1 and proximal M2 I reviewed the patient's prior CTA 01/28/2018. There is occlusion of the right M1 segment which is re latively short in this patient with extension into the proximal M2 branches. The risks, benefits and alternatives to the procedure were explained and verbal and written consent was obtained. The site wa s prepped in sterile fashion. Full sterile technique was used, including cap, mask, sterile gloves an d gown and a large sterile sheet. Hand hygiene and 2% chlorhexidine and/or betadine/alcohol prep was utilized per protocol for cutaneous antisepsis. The skin and subcutaneous tissues were infiltrated wi th local anesthetic solution. Sterile gel and sterile probe cover were utilized for ultrasound omar nce. With ultrasound and fluoroscopic guidance the right common femoral artery was punctured and a vascula r sheath was placed. Angiography of the common femoral artery was performed for evaluation prior to p ercutaneous closure device placement. A diagnostic catheter was placed into the right internal carotid artery and angiography was performed over the head to confirm vessel occlusion. These diagnostic images show a complete occlusion of the right M1 distally with extension into the proximal M2 branches. A single temporal branch remains hope nt. Subsequent to this a guidewire was placed into the distal cervical internal carotid artery and a guide catheter was placed to the level of the skull base. Through this a large bore suction catheter was placed in the face of the clot and suction was performed for 90 seconds. With suction still appli ed the catheter was removed in one piece. Followup angiography demonstrates denominational of flow with TICI 3 flow. There is restored antegrade f low through the right middle cerebral artery territory. No residual thrombus observed. Hemostasis was obtained with the prescribed medicated closure device. Conscious sedation was performe d with the prescribed dosages and duration as above. EKG and oximetry remained stable throughout the procedure. The patient was sent to post anesthesia recovery in stable condition. CONCLUSION: 1. Acute right MCA occlusion with extension into the proximal M2 branches with successful thrombecto my and reestablishment of flow with TICI score 3. Electronically signed by: Sanjeev Schneider MD 01/28/2018 11:42 AM EST
[2018-01-28 13:34] LABS: Hemoglobin A1c 5.2 % (4.3-6.0)
--- NOTE | 2018-01-28 16:59 | MR ---
EXAM DATE: 01/28/2018 4:53 PM EST AGE/SEX: 77 years / Male INDICATIONS: Left sided weakness. CLINICAL DATA: This is the patient's initial encounter. Patient reports that signs and symptoms have been present for 1 day and indicates a pain score of 0/10. MEDICAL/SURGICAL HISTORY: Hypertension. Tonsillectomy. Fusion, cervical. Coronary artery sten t. COMPARISON: No prior exams available for comparison. TECHNIQUE: 3D [id number] MRA was performed. Source images, multiplanar STS MIP, and 3D volum e MIP reconstructions were reviewed. FINDINGS: There is excellent visualization of the major intracranial arteries out to the second-order branch ve ssels There is occlusion of the upper most portion of the right vertebral artery. The upper cervical, petrous, cavernous and supraclinoid internal carotid arteries are patent without significant stenosi s or occlusion. The anterior middle cerebral arteries are also patent without significant stenosis or occlusion. Bilateral posterior cerebral arteries are patent without significant stenosis or occlusio n. Bilateral patent posterior communicating arteries are noted. The basilar artery is patent. No aneu rysm or vascular malformation is noted. CONCLUSION: 1. Occlusion of the upper most portion of the right vertebral artery. 2. No evidence of anterior cerebral circulation stenosis, occlusion or aneurysm. 3. Patent bilateral posterior communicating arteries. Electronically signed by: Luis A Weiner MD 01/28/2018 4:57 PM EST
--- NOTE | 2018-01-28 17:08 | MR ---
EXAM DATE: 01/28/2018 4:55 PM EST AGE/SEX: 77 years / Male INDICATIONS: Left sided weakness. CLINICAL DATA: This is the patient's initial encounter. Patient reports that signs and symptoms have been present for 1 day and indicates a pain score of 0/10. MEDICAL/SURGICAL HISTORY: Hypertension. Tonsillectomy. Coronary artery stent. Fusion, cervica l. COMPARISON: [facility], MRA HEAD W/O CONTRAST, 01/28/2018. . TECHNIQUE: Multiplanar, multisequence examination of the brain was performed without contrast. FINDINGS: Cerebrum: Moderate-sized area of acute infarction involving the right basal ganglia is noted. No acu te hemorrhage, midline shift or extra-axial bleed is noted. The ventricles are normal in size, shape and position for the patient's age. White Matter: Minimal scattered periventricular white matter small vessel ischemic changes are noted . Posterior Fossa: The cerebellum and brainstem are intact. The 4th ventricle is midline. The cerebel lopontine angle is unremarkable. The cerebellar tonsils are normal in position. Diffusion Imaging: No focal areas of restricted diffusion are seen. No evidence of acute infarction . Extracranial: The visualized portions of the orbits and paranasal sinuses are unremarkable. CONCLUSION: 1. Moderately-sized area of acute infarction involving the right basal ganglia. 2. Minimal scattered periventricular white matter small vessel ischemic changes. 3. No acute hemorrhage, midline shift or extra-axial bleed. Electronically signed by: Luis A Weiner MD 01/28/2018 5:07 PM EST
--- NOTE | 2018-01-28 17:32 | ECHRPT ---
Indication: CVA/TIA CONCLUSIONS Normal left ventricular size. Mild concentric left ventricular hypertrophy. The left ventricular systolic function is normal with an estimated ejection fraction in the range of 55-60%. The left atrial size is mildly dilated. Trace mitral valve regurgitation. There is trace tricuspid valve regurgitation. The estimated pulmonary arterial pressure is 44 mmHg. The pulmonary valve is not well visualized. The inferior vena cava was not well visualized. There is a small pericardial effusion present. BP: 141 / 65 HR: 100 Rhythm: MEASUREMENTS (Male / Female) Normal Values Technical Quality:Technically difficult study 2D ECHO LV Diastolic Diameter PLAX 5.0 cm 4.2 - 5.9 / 3.9 - 5.3 cm LV Systolic Diameter PLAX 3.3 cm IVS Diastolic Thickness 1.2 cm 0.6 - 1.0 / 0.6 - 0.9 cm LVPW Diastolic Thickness 1.1 cm 0.6 - 1.0 / 0.6 - 0.9 cm LV Relative Wall Thickness 0.5 RV Internal Dim ED PLAX 3.5 cm LVOT Diameter 2.1 cm Aortic Root Diameter 3.2 cm LA Systolic Diameter LX 4.3 cm 3.0 - 4.0 / 2.7 - 3.8 cm M-MODE AV Cusp Separation MM 2.1 cm DOPPLER AV Peak Velocity 147.0 cm/s AV Peak Gradient 8.6 mmHg LVOT Peak Velocity 120.0 cm/s LVOT Peak Gradient 5.8 mmHg AV Area Cont Eq pk 2.8 cm Mitral E Point Velocity 85.9 cm/s LV E' Lateral Velocity 11.1 cm/s Mitral E to LV E' Lateral Ratio 7.7 LV E' Septal Velocity 9.2 cm/s Mitral E to LV E' Septal Ratio 9.4 TR Peak Velocity 293.0 cm/s TR Peak Gradient 34.3 mmHg Right Atrial Pressure 10.0 mmHg Pulmonary Artery Systolic Pressu 44.3 mmHg Right Ventricular Systolic Press 44.3 mmHg PV Peak Velocity 73.3 cm/s PV Peak Gradient 2.1 mmHg FINDINGS LEFT VENTRICLE Normal left ventricular size. Mild concentric left ventricular hypertrophy. The left ventricular systolic function is normal with an estimated ejection fraction in the range of 55-60%. RIGHT VENTRICLE Normal right ventricular size and systolic function. LEFT ATRIUM The left atrial size is mildly dilated. RIGHT ATRIUM The right atrial size is normal. ATRIAL SEPTUM Normal atrial septal thickness without atrial level shunting by limited color doppler interrogation. AORTA The aortic root and proximal ascending aorta are normal in size on limited imaging. MITRAL VALVE Trace mitral valve regurgitation. AORTIC VALVE Trileaflet aortic valve. No aortic valve stenosis or regurgitation. TRICUSPID VALVE There is trace tricuspid valve regurgitation. The estimated pulmonary arterial pressure is 44 mmHg. PULMONARY VALVE The pulmonary valve is not well visualized. VESSELS The inferior vena cava was not well visualized. PERICARDIUM There is a small pericardial effusion present. Tobi Pepper MD, FACC (Electronically Signed) Final Date:28 January 2018 17:32
[2018-01-28] MEDS ORDERED: Phenol 1.4% 180 ML Spray Bottle OROPHARYNG PRN (17:35)
[2018-01-29] MEDS: Sod Chloride 0.9% Inj 1,000 ML IV.CONT SCH ×2 (00:30→09:28)
[2018-01-29] MEDS: Chlorhexidine Gluconate 2% 1 Pack (2 Cloths) TOPICAL SCH (03:02)
--- NOTE | 2018-01-29 05:14 | CT ---
EXAM DATE: 01/29/2018 4:45 AM EST AGE/SEX: 77 years / Male INDICATIONS: Post TPA. Post embolectomy. CLINICAL DATA: This is the patient's subsequent encounter. Patient reports that signs and symptoms h ave been present for 1 day and indicates a pain score of 0/10. MEDICAL/SURGICAL HISTORY: Cerebrovascular disease. . Embolectomy. RADIATION DOSE: 56.35 CTDI (mGy) COMPARISON: [facility] – [place], [place] HEAD W/O CONTRAST, 01/28/2018. . TECHNIQUE: CT of the head without contrast. Using automated exposure control and adjustment of the mA and/or kV according to patient size, radiation dose was kept as low as reasonably achievable to ob tain optimal diagnostic quality images. DICOM format image data is available electronically for revi ew and comparison. FINDINGS: There is an evolving infarct in the right basal ganglia, especially the caudate lobe and globus palli dus. Mild localized mass effect without significant midline shift. No hydrocephalus. Small punctate h emorrhage noted posteriorly in the subinsular region measuring about 4 mm. CONCLUSION: 1. Infarct of the right basal ganglia. Punctate hemorrhage measuring about 4 mm in diameter posterio r right subinsular cortex. No significant mass effect. . Electronically signed by: Nathan Carvalho MD 01/29/2018 5:13 AM EST
[2018-01-29] MEDS: Famotidine PF Inj 20 MG/2 ML Vial IV.PUSH SCH ×2 (08:37→20:01)
[2018-01-29] MEDS: Chlorhexidine 0.12% Oral Kit 15 ML UDC OROPHARYNG SCH ×2 (08:37→19:39)
[2018-01-29] MEDS: Oral Hygiene Kit OROPHARYNG SCH ×3 (08:38→18:35)
--- NOTE | 2018-01-29 15:08 | P.PNIM ---
Subjective Interval history: DRAFT NOTE+ Physical Exam Vital signs: Last Vital Signs Temp 98.1 F 01/29/18 12:00 Pulse 77 01/29/18 12:00 Resp 31 H 01/29/18 12:00 BP 129/58 L 01/29/18 12:00 Pulse Ox 97 01/29/18 12:00 Narrative: GENERAL: This is a well-nourished, well-developed patient, in no apparent distress. CARDIOVASCULAR: Regular rate and rhythm without murmurs, gallops, or rubs. RESPIRATORY: Clear to auscultation. Breath sounds equal bilaterally. No wheezes , rales, or rhonchi. GASTROINTESTINAL: Abdomen soft, non-tender, nondistended. Normal active bowel sounds MUSCULOSKELETAL: Extremities without clubbing, cyanosis, or edema. NEURO: Alert & Oriented x4 to person, place, time, situation. Moves all ext x4 Results Labs CBC & Chem 7: 01/28/18 01:00 Assessment and Plan Assessment (1) Acute right MCA stroke: Code(s): I63.511 - Cerebral infarction due to unspecified occlusion or stenosis of right middle cerebral artery Status: Acute (2) Acute respiratory failure: Code(s): J96.00 - Acute respiratory failure, unspecified whether with hypoxia or hypercapnia Status: Deleted (3) Atrial fibrillation: Code(s): I48.91 - Unspecified atrial fibrillation Status: Chronic (4) Hypertension: Code(s): I10 - Essential (primary) hypertension Status: Chronic Plan right MCA STROKE - 77 Y/O m with h/o A. fib admitted to [facility] 01/28/18 - Pt presented with 3.5 hours of Left sideded weakness - Pt off of his coumadin x 1 week - INR 1.1 on admission - Pt received IV TPA (01/28) - Pt underwent successful right MCA thrombectomy by IR Chest X-Ray 01/28/18 No acute findings. Head CT 01/28/18 No acute intracranial abnormalities. Head CTA 01/28/18 1. 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 Neck CTA 01/28/18 1. No carotid stenosis. Mild plaque formation around the carotid bifurcations. MRI brain (01/28/18) 1. Moderately-sized area of acute infarction involving the right basal ganglia. 2. Minimal scattered periventricular white matter small vessel ischemic changes. 3. No acute hemorrhage, midline shift or extra-axial bleed. MRA brain (01/28/18) 1. Occlusion of the upper most portion of the right vertebral artery. 2. No evidence of anterior cerebral circulation stenosis, occlusion or aneurysm. 3. Patent bilateral posterior communicating arteries. Echocardiogram (01/28/18) EF 55-60% Repeat CT brain (01/29/18) 1. Infarct of theright basal ganglia. Punctate hemorrhage measuring about 4 mm in diameter posterior right subinsular cortex. No significant mass effect. - LDL 96 (01/28/18) - comgmt with Neurology - start lipitor 20mg hs - TPA, over 24 hours ago - lovenox 100mg x once - will discuss anticoagulation with Neurology 01/30 - likely Xarelto or other novel anticoagulant. Progress Note: Quality VTE Deep Vein Thrombosis/Pulmonary Embolism Present on Admission: No _ (1) Acute respiratory failure Qualifiers: Respiratory failure complication: (2) Atrial fibrillation Qualifiers: Atrial fibrillation type: (3) Hypertension Qualifiers: Hypertension type:
[2018-01-29] MEDS ORDERED: Enoxaparin Inj 100 MG/ML Syringe SQ ONE (17:59)
--- NOTE | 2018-01-29 19:34 | P.PNNEU ---
Subjective Subjective Comments: " i want to go home". no cp, no johnson, no dyspnea. feels strong Active Medications: Active Medications Albuterol (Duoneb Neb (Prn)) 1 ampul NEB Q2HR NEB PRN PRN Reason: SHORTNESS OF BREATH Atorvastatin Calcium (Lipitor) 40 mg PO HS NADER Bisacodyl (Dulcolax Supp) 10 mg RECTAL DAILY PRN PRN Reason: SEVERE CONSITIPATION Chlorhexidine Gluconate (Chlorhexidine 2% Cloth) 3 pack TOPICAL DAILY@0400 [facility] Stop: 02/02/18 03:59 Last Admin: 01/29/18 03:02 Dose: 3 pack Chlorhexidine Gluconate (Chlorhexidine 2% Cloth) 3 pack TOPICAL DAILY@0400 PRN PRN Reason: Extra cloth needed Stop: 02/02/18 03:59 Chlorhexidine Gluconate (Peridex 0.12% Oral Kit) 15 ml OROPHARYNG BID@0800, 2000 [facility] Last Admin: 01/29/18 08:37 Dose: Not Given Famotidine (Pepcid Pf Inj) 20 mg IV.PUSH Q12HR [facility] Last Admin: 01/29/18 08:37 Dose: 20 mg Sodium Chloride (Ns Inj) 1,000 mls @ 70 mls/hr IV.CONT .[id number] [facility] Last Infusion: 01/29/18 10:00 Dose: 0 mls/hr Nicardipine HCl 25 mg/ Sodium (Chloride) 250 mls @ 50 mls/hr IV.CONT TITRATE PRN; Protocol PRN Reason: Per Protocol Last Titration: 01/28/18 02:50 Dose: 0 mg/hr, 0 mls/hr Propofol (Diprivan 1000 Mg/100 Ml Inj) 1,000 mg in 100 mls @ 3.306 mls/hr IV.CONT TITRATE PRN; Protocol PRN Reason: Per Protocol Last Titration: 01/28/18 11:31 Dose: 0 mcg/kg/min, 0 mls/hr Labetalol HCl (Trandate Inj) 20 mg IV.PUSH Q4H PRN PRN Reason: SBP>180, DBP>100, HR>65 Metoprolol Tartrate (Lopressor) 12.5 mg PO BID [facility] Miscellaneous (Pill Splitter) 1 each OTHER PRN PRN PRN Reason: SEE LABEL COMMENTS Miscellaneous Medication () 1 each OROPHARYNG 0000,0400,1200,1600 [facility] Last Admin: 01/29/18 18:35 Dose: Not Given Sodium Chloride (Ns Flush) 2 ml IV.FLUSH PRN PRN PRN Reason: FLUSH AFTER USING IV ACCESS Sodium Chloride (Ns Flush) 2 ml IV.FLUSH BID [facility] Last Admin: 01/29/18 09:28 Dose: 2 ml Throat Lozenges (Chloraseptic Blair) 1 spray OROPHARYNG Q6H PRN PRN Reason: SORE THROAT Last Admin: 01/28/18 19:59 Dose: 1 spray Allergies/Adverse Reactions: Allergies Allergy/AdvReac Type Severity Reaction Status Date / Time No Known Allergies Allergy Uncoded 06/28/15 14:57 Review of Systems All other systems reviewed negative except as stated in HPI Physical Exam Vital signs: Vital Signs 01/28/18 19:53 01/28/18 19:57 01/28/18 20:00 Temperature 98.4 F Pulse Rate 76 72 Respiratory Rate 24 22 Blood Pressure 116/59 L 108/55 L Pulse Oximetry 97 97 01/28/18 20:02 01/28/18 21:00 01/28/18 22:00 Temperature Pulse Rate 73 71 Respiratory Rate 22 15 Blood Pressure 112/58 L 122/81 Pulse Oximetry 96 95 96 01/28/18 23:00 01/29/18 00:00 01/29/18 01:00 Temperature 98.5 F Pulse Rate 71 72 65 Respiratory Rate 22 22 17 Blood Pressure 145/65 H 154/65 H 143/63 H Pulse Oximetry 95 94 L 95 01/29/18 02:00 01/29/18 03:00 01/29/18 04:00 Temperature 98.6 F Pulse Rate 66 64 56 L Respiratory Rate 18 16 17 Blood Pressure 150/74 H 118/59 L 163/72 H Pulse Oximetry 95 96 96 01/29/18 05:00 01/29/18 06:00 01/29/18 07:00 Temperature Pulse Rate 57 L 56 L 58 L Respiratory Rate 15 16 16 Blood Pressure 142/65 H 140/71 144/81 H Pulse Oximetry 96 94 L 92 L 01/29/18 08:00 01/29/18 08:36 01/29/18 09:10 Temperature 99.6 F Pulse Rate 76 67 Respiratory Rate 41 H Blood Pressure 138/61 Pulse Oximetry 92 L 96 01/29/18 09:11 01/29/18 10:00 01/29/18 11:00 Temperature Pulse Rate 75 66 67 Respiratory Rate 26 H 23 19 Blood Pressure 128/78 122/67 Pulse Oximetry 97 97 96 01/29/18 11:37 01/29/18 12:00 01/29/18 13:00 Temperature 98.1 F Pulse Rate 67 77 67 Respiratory Rate 37 H 31 H 36 H Blood Pressure 104/77 129/58 L 122/99 H Pulse Oximetry 96 97 98 01/29/18 14:00 01/29/18 15:00 01/29/18 16:00 Temperature Pulse Rate 67 61 61 Respiratory Rate 23 21 22 Blood Pressure 126/57 L 130/60 142/101 H Pulse Oximetry 95 96 99 01/29/18 16:03 01/29/18 17:00 01/29/18 18:00 Temperature 98.5 F Pulse Rate 68 68 67 Respiratory Rate 33 H 23 21 Blood Pressure 163/99 H 135/64 130/61 Pulse Oximetry 97 97 95 Intake & Output 01/29/18 01/29/18 01/30/18 06:59 18:59 06:59 Intake Total 750 / 750 Output Total 400 / 400 500 / 500 Balance -400 / -400 250 / 250 Weight 105.2 kg Intake: Oral 750 / 750 Output: Urine Amount (Catheter) 400 / 400 500 / 500 condom catheter 400 / 400 500 / 500 Narrative: GENERAL: in NAD, SKIN: Warm and dry. HEAD: Atraumatic. Normocephalic. ENT: No nasal bleeding or discharge. Mucous membranes pink and moist. NECK: Trachea midline. No JVD. CARDIOVASCULAR: Regular rate and rhythm. RESPIRATORY: No accessory muscle use. GASTROINTESTINAL: Abdomen soft, non-tender, nondistended. MUSCULOSKELETAL: Extremities without clubbing, cyanosis, or edema. No obvious deformities. NEUROLOGICAL: awake, alert, ox 3, sitting up, articulate, vff, face sym, able to raise all 4 ext to gravity, mild rt le drift, mild dystaxia, sensory nml PSYCHIATRIC: calm, pleasant - Constitutional no acute distress - Routine HEENT Exam Head: Present: normocephalic Eye: Present: EOMI - Urinary Catheter Management condom catheter Cath placed during this visit: no Review/Management - Diagnosis (1) Acute right MCA stroke Code(s): I63.511 - Cerebral infarction due to unspecified occlusion or stenosis of right middle cerebral artery Status: Acute Current Visit: Yes (2) Atrial fibrillation Code(s): I48.91 - Unspecified atrial fibrillation Status: Chronic Current Visit: Yes (3) Hypertension Code(s): I10 - Essential (primary) hypertension Status: Chronic Current Visit: Yes - Review/Management Plan: Status post IV TPA, right MCA thrombectomy Likely cardioembolic infarct rt BG infarct nihss [address] brain reviewed. tiny punctate ich. will start aspirin OAC in 10-[address] brain. novel preferred as he has been having problems with maintaining therapeutic inr
[2018-01-29] MEDS: Metoprolol Tartrate 25 MG Tablet PO SCH (20:00)
[2018-01-29] MEDS: Aspirin 325 MG Tablet PO SCH (21:11)
[2018-01-30] MEDS: Sod Chloride 0.9% Inj 1,000 ML IV.CONT SCH ×2 (02:15→12:58)
[2018-01-30] MEDS: Chlorhexidine Gluconate 2% 1 Pack (2 Cloths) TOPICAL SCH (03:23)
--- NOTE | 2018-01-30 08:30 | P.PNNEU ---
Subjective Subjective Comments: no acute events. no johnson, no cp, no dyspnea Active Medications: Active Medications Albuterol (Duoneb Neb (Prn)) 1 ampul NEB Q2HR NEB PRN PRN Reason: SHORTNESS OF BREATH Aspirin (Aspirin) 325 mg PO DAILY [facility] Last Admin: 01/29/18 21:11 Dose: 325 mg Atorvastatin Calcium (Lipitor) 40 mg PO HS [facility] Last Admin: 01/29/18 20:00 Dose: 40 mg Bisacodyl (Dulcolax Supp) 10 mg RECTAL DAILY PRN PRN Reason: SEVERE CONSITIPATION Chlorhexidine Gluconate (Chlorhexidine 2% Cloth) 3 pack TOPICAL DAILY@0400 [facility] Stop: 02/02/18 03:59 Last Admin: 01/30/18 03:23 Dose: Not Given Chlorhexidine Gluconate (Chlorhexidine 2% Cloth) 3 pack TOPICAL DAILY@0400 PRN PRN Reason: Extra cloth needed Stop: 02/02/18 03:59 Chlorhexidine Gluconate (Peridex 0.12% Oral Kit) 15 ml OROPHARYNG BID@0800, 2000 [facility] Last Admin: 01/29/18 19:39 Dose: Not Given Famotidine (Pepcid Pf Inj) 20 mg IV.PUSH Q12HR [facility] Last Admin: 01/29/18 20:01 Dose: 20 mg Sodium Chloride (Ns Inj) 1,000 mls @ 70 mls/hr IV.CONT .[id number] [facility] Last Admin: 01/30/18 02:15 Dose: 70 mls/hr Nicardipine HCl 25 mg/ Sodium (Chloride) 250 mls @ 50 mls/hr IV.CONT TITRATE PRN; Protocol PRN Reason: Per Protocol Last Titration: 01/28/18 02:50 Dose: 0 mg/hr, 0 mls/hr Propofol (Diprivan 1000 Mg/100 Ml Inj) 1,000 mg in 100 mls @ 3.306 mls/hr IV.CONT TITRATE PRN; Protocol PRN Reason: Per Protocol Last Titration: 01/28/18 11:31 Dose: 0 mcg/kg/min, 0 mls/hr Labetalol HCl (Trandate Inj) 20 mg IV.PUSH Q4H PRN PRN Reason: SBP>180, DBP>100, HR>65 Metoprolol Tartrate (Lopressor) 12.5 mg PO BID [facility] Last Admin: 01/29/18 20:00 Dose: 12.5 mg Miscellaneous (Pill Splitter) 1 each OTHER PRN PRN PRN Reason: SEE LABEL COMMENTS Miscellaneous Medication () 1 each OROPHARYNG 0000,0400,1200,1600 [facility] Last Admin: 01/29/18 18:35 Dose: Not Given Sodium Chloride (Ns Flush) 2 ml IV.FLUSH PRN PRN PRN Reason: FLUSH AFTER USING IV ACCESS Sodium Chloride (Ns Flush) 2 ml IV.FLUSH BID [facility] Last Admin: 01/29/18 20:00 Dose: 2 ml Throat Lozenges (Chloraseptic [place]) 1 spray OROPHARYNG Q6H PRN PRN Reason: SORE THROAT Last Admin: 01/28/18 19:59 Dose: 1 spray Allergies/Adverse Reactions: Allergies Allergy/AdvReac Type Severity Reaction Status Date / Time No Known Allergies Allergy Uncoded 06/28/15 14:57 Review of Systems All other systems reviewed negative except as stated in HPI Physical Exam Vital signs: Vital Signs 01/29/18 08:36 01/29/18 09:10 01/29/18 09:11 Temperature Pulse Rate 67 75 Respiratory Rate 26 H Blood Pressure 128/78 Pulse Oximetry 96 97 01/29/18 10:00 01/29/18 11:00 01/29/18 11:37 Temperature Pulse Rate 66 67 67 Respiratory Rate 23 19 37 H Blood Pressure 122/67 104/77 Pulse Oximetry 97 96 96 01/29/18 12:00 01/29/18 13:00 01/29/18 14:00 Temperature 98.1 F Pulse Rate 77 67 67 Respiratory Rate 31 H 36 H 23 Blood Pressure 129/58 L 122/99 H 126/57 L Pulse Oximetry 97 98 95 01/29/18 15:00 01/29/18 16:00 01/29/18 16:03 Temperature 98.5 F Pulse Rate 61 61 68 Respiratory Rate 21 22 33 H Blood Pressure 130/60 142/101 H 163/99 H Pulse Oximetry 96 99 97 01/29/18 17:00 01/29/18 18:00 01/29/18 19:00 Temperature Pulse Rate 68 67 70 Respiratory Rate 23 21 20 Blood Pressure 135/64 130/61 Pulse Oximetry 97 95 94 L 01/29/18 19:49 01/29/18 20:00 01/29/18 20:21 Temperature Pulse Rate 75 63 Respiratory Rate 22 25 H Blood Pressure 124/64 126/59 L Pulse Oximetry 97 98 01/29/18 21:00 01/29/18 22:00 01/29/18 23:00 Temperature Pulse Rate 64 59 L 65 Respiratory Rate 25 H 22 20 Blood Pressure 148/63 H 158/70 H 132/63 Pulse Oximetry 97 96 95 01/30/18 00:00 01/30/18 01:00 01/30/18 02:00 Temperature 98.9 F Pulse Rate 59 L 56 L 53 L Respiratory Rate 19 19 18 Blood Pressure 152/71 H 140/72 Pulse Oximetry 95 96 96 01/30/18 03:00 01/30/18 04:00 01/30/18 05:00 Temperature Pulse Rate 55 L 53 L 44 L Respiratory Rate 18 20 22 Blood Pressure 173/74 H 162/77 H 168/77 H Pulse Oximetry 95 96 97 01/30/18 06:00 01/30/18 06:02 01/30/18 07:00 Temperature Pulse Rate 49 L 53 L 46 L Respiratory Rate 18 17 19 Blood Pressure 171/79 H Pulse Oximetry 97 93 L 95 01/30/18 07:49 Temperature 98.9 F Pulse Rate 53 L Respiratory Rate 16 Blood Pressure 153/72 H Pulse Oximetry 97 Intake & Output 01/29/18 01/30/18 01/30/18 18:59 06:59 18:59 Intake Total 750 / 750 240 / 240 Output Total 500 / 500 Balance 250 / 250 240 / 240 Weight 108 kg Intake: Oral 750 / 750 240 / 240 Output: Urine Amount (Catheter) 500 / 500 condom catheter 500 / 500 Other: # Voids 2 Narrative: GENERAL: in NAD, SKIN: Warm and dry. HEAD: Atraumatic. Normocephalic. ENT: No nasal bleeding or discharge. Mucous membranes pink and moist. NECK: Trachea midline. No JVD. CARDIOVASCULAR: Regular rate and rhythm. RESPIRATORY: No accessory muscle use. GASTROINTESTINAL: Abdomen soft, non-tender, nondistended. MUSCULOSKELETAL: Extremities without clubbing, cyanosis, or edema. No obvious deformities. NEUROLOGICAL: awake, alert, ox 3, articulate, vff, face sym, able to raise all 4 ext to gravity, no drift, no dystaxia, sensory nml, mild rt ue tremor PSYCHIATRIC: calm, pleasant - Constitutional no acute distress - Routine HEENT Exam Head: Present: normocephalic Eye: Present: EOMI - Urinary Catheter Management condom catheter Cath placed during this visit: no Review/Management - Diagnosis (1) Acute right MCA stroke Code(s): I63.511 - Cerebral infarction due to unspecified occlusion or stenosis of right middle cerebral artery Status: Acute Current Visit: Yes (2) Atrial fibrillation Code(s): I48.91 - Unspecified atrial fibrillation Status: Chronic Current Visit: Yes (3) Hypertension Code(s): I10 - Essential (primary) hypertension Status: Chronic Current Visit: Yes - Review/Management Plan: Status post IV TPA, right MCA thrombectomy Likely cardioembolic infarct rt BG infarct nihss 1 Recommendations doing excellent. neuro doing well ct brain reviewed. tiny punctate ich. repeat ct brain today aspirin started last night d/c planning home vs rehab. pt wants to go home no driving f/u outpatient in 1-2 weeks d/w pt/spouse OAC in 10-[address] brain. novel preferred as he has been having problems with maintaining therapeutic inr
[2018-01-30] MEDS: Famotidine PF Inj 20 MG/2 ML Vial IV.PUSH SCH (08:35)
[2018-01-30] MEDS: Aspirin 325 MG Tablet PO SCH (08:35)
[2018-01-30] MEDS: Metoprolol Tartrate 25 MG Tablet PO SCH (08:36)
[2018-01-30] MEDS ORDERED: Lisinopril 10 MG Tablet PO SCH (09:00)
[2018-01-30] MEDS: Chlorhexidine 0.12% Oral Kit 15 ML UDC OROPHARYNG SCH (09:11)
--- NOTE | 2018-01-30 11:22 | CT ---
EXAM DATE: 01/30/2018 11:17 AM EST AGE/SEX: 77 years / Male INDICATIONS: F/U cerebral infarct. CLINICAL DATA: This is the patient's subsequent encounter. Patient reports that signs and symptoms h ave been present for 3 days and indicates a pain score of 0/10. MEDICAL/SURGICAL HISTORY: Hypertension. Cardiovascular disease. A-fib None. RADIATION DOSE: 41.28 CTDI (mGy) COMPARISON: [facility] [place] HEAD W/O CONTRAST, 01/29/2018. . TECHNIQUE: CT of the head without contrast. Using automated exposure control and adjustment of the mA and/or kV according to patient size, radiation dose was kept as low as reasonably achievable to ob tain optimal diagnostic quality images. DICOM format image data is available electronically for revi ew and comparison. FINDINGS: Evolving hypodensity in the right lentiform nucleus. Decrease in visualization of minimal blood noted in the sylvian fissure. Contralateral left hemisphere is stable and benign. Posterior fossa and brai nstem structures are stable and unremarkable. Slight decrease in degree of mass effect associated wit h the evolving infarction. No new acute findings. CONCLUSION: Slightly improving appearance . Electronically signed by: Lalit Bassett MD 01/30/2018 11:20 AM EST
[2018-01-30 16:30] VITALS: TEMP 97.8
--- NOTE | 2018-01-30 17:37 | P.DS ---
DS: Providers Date of admission: 01/28/18 03:20 Primary care physician: Warren Ortez MD Consults: 01/28/18 01:06 Consult to Neurology Stat Consulting Provider: Sunny Parsons For STAT consult, spoke directly to:: Law Reason for Consultation: Brain Attack Notified:: Service Spoke with:: winifred banks verified dr justine piper Date Notified:: 01/28/18 Time Notified:: 03:50 Comments:: consult to dr parsons for f/u in AM. law contacted re STAT consult Ordering Provider: GAVIOTA 01/28/18 17:49 Consult to Hospitalist Routine Consulting Provider: Christiano Nicholas Reason for Consultation: Consult and transfer to hospitalist service for medical management. Critical care will be signing off, please reconsult if needed Notified:: Service Spoke with:: ERIC Date Notified:: 01/28/18 Time Notified:: 17:56 Ordering Provider: MARIA E Brief History from admission: Patient is a 77 year past medical history significant for atrial fibrillation on Coumadin, hypertension who was brought to emergency department as a stroke alert. Last seen normal at 10:30 PM yesterday night. Apparently around midnight, patient got out of bed tonight and fell. He left sided facial droop and left sided weakness. He was not taking Coumadin last week due to supratherapeutic INR, restarted just one day before. CT of the head was negative, CTA head showed occlusion of the right middle cerebral artery proximally. Neurology Dr. Pendleton was contacted. Patient received TPA per protocol post TPA was taken to IR for acute R M1 MCA occlusion. Underwent successful embolectomy with reestablishment of flow thru the previously occluded right M1 segment. Patient was intubated for the procedure I evaluated the patient in the ICU postprocedure. He is intubated sedated received neuromuscular paralysis with vecuronium 5 minutes before limiting neuro exam. Start weaning trials based on neuro recovery DS: Diagnosis Discharge Diagnosis (1) Acute right MCA stroke: Status: Acute (2) Acute respiratory failure: Status: Deleted (3) Atrial fibrillation: Status: Chronic (4) Hypertension: Status: Chronic DS: Summary Attending Attestation: right MCA STROKE - 77 Y/O m with h/o A. fib admitted to [facility] 01/28/18 - Pt presented with 3.5 hours of Left sideded weakness - Pt off of his coumadin x 1 week - INR 1.1 on admission - Pt received IV TPA (01/28) - Pt underwent successful right MCA thrombectomy by IR Chest X-Ray 01/28/18 No acute findings. Head CT 01/28/18 No acute intracranial abnormalities. Head CTA 01/28/18 1. 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 Neck CTA 01/28/18 1. No carotid stenosis. Mild plaque formation around the carotid bifurcations. MRI brain (01/28/18) 1. Moderately-sized area of acute infarction involving the right basal ganglia. 2. Minimal scattered periventricular white matter small vessel ischemic changes. 3. No acute hemorrhage, midline shift or extra-axial bleed. MRA brain (01/28/18) 1. Occlusion of the upper most portion of the right vertebral artery. 2. No evidence of anterior cerebral circulation stenosis, occlusion or aneurysm. 3. Patent bilateral posterior communicating arteries. Echocardiogram (01/28/18) EF 55-60% Repeat CT brain (01/29/18) 1. Infarct of theright basal ganglia. Punctate hemorrhage measuring about 4 mm in diameter posterior right subinsular cortex. No significant mass effect. - LDL 96 (01/28/18) - pt previously on pravachol and zetia - continue zetia. Change pravachol to lipitor 40mg hs - comgmt with Neurology - Per Neurology recommendations: ASA 325mg daily Obtain outpt CT brain in [address] brain remains stable then start on Xarelto or other novel anticoagulant. - f/u with PCP, Dr. Warren Ortez, in 1 week - with Neurology, Dr. Pendleton, in 3 weeks. - Home Health Care and home physical therapy has been requested. Time Spent with Patient Total time spent providing and/or coordinating discharge services: Quality: Stroke Last date observed well: 01/28/18 Last time observed well: 03:00 Quality: VTE Deep Vein Thrombosis/Pulmonary Embolism Present on Admission: No Results Impressions ITS Impressions Cerebral Angiography 01/28/18 00:00 CONCLUSION: 1. Acute right MCA occlusion with extension into the proximal M2 branches with successful thrombectomy and reestablishment of flow with TICI score 3. Head MRI 01/28/18 00:00 CONCLUSION: 1. Moderately-sized area of acute infarction involving the right basal ganglia. 2. Minimal scattered periventricular white matter small vessel ischemic changes. 3. No acute hemorrhage, midline shift or extra-axial bleed. Chest X-Ray 01/28/18 01:06 CONCLUSION: No acute findings. Head CTA 01/28/18 01:06 CONCLUSION: 1. 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 Findings called by Dr. Schneider to Dr. Pendleton at 1:57 AM Neck CTA 01/28/18 01:06 CONCLUSION: 1. No carotid stenosis. Mild plaque formation around the carotid bifurcations. Head MRA 01/28/18 09:07 CONCLUSION: 1. Occlusion of the upper most portion of the right vertebral artery. 2. No evidence of anterior cerebral circulation stenosis, occlusion or aneurysm. 3. Patent bilateral posterior communicating arteries. Head CT 01/30/18 10:00 CONCLUSION: Slightly improving appearance . Discharge Plan Discharge Disposition Patient Disposition: Disch /Home Health Service Discharge Condition Condition: Stable Discharge Details Anticipated Discharge Date: 01/30/18 Physicians Team Primary Care Provider: Warren Ortez Attending Provider: Sandra Cohn Other Providers: Sunny Parsons ; Christiano Nicholas Rxs /Orders / Referrals /Forms Prescriptions: New atorvastatin 40 mg Tablet 40 mg PO HS Qty: 30 RF: 0 lisinopril 10 mg Tablet 10 mg PO DAILY Qty: 30 RF: 0 metoprolol tartrate 25 mg tablet 12.5 mg PO BID Qty: 60 RF: 0 aspirin 325 mg Tablet 325 mg PO DAILY Qty: 10 RF: 0 Continue ezetimibe [Zetia] 10 mg Tablet 10 mg PO DAILY RF: 0 cyclobenzaprine 10 mg Tablet 10 mg PO TID PRN (Reason: muscle spasms) RF: 0 alprazolam 0.5 mg Tablet 0.5 mg PO HS PRN (Reason: Insomnia) RF: 0 amlodipine 2.5 mg Tablet 2.5 mg PO BID RF: 0 tamsulosin 0.4 mg Capsule,Extended Release 24hr 0.4 mg PO DAILY RF: 0 zolpidem 10 mg Tablet 1 tab PO HS RF: 0 escitalopram oxalate 20 mg Tablet 20 mg PO DAILY RF: 0 omega-3 acid ethyl esters 1 gram Capsule 1 tab PO BID RF: 0 [id number] K [Multi-Day Plus Minerals] 18 mg iron-400 mcg- 25 mcg Tablet 1 tab PO DAILY RF: 0 Discontinued pravastatin 40 mg Tablet 40 mg PO DAILY RF: 0 warfarin 5 mg Tablet 5 mg PO MOFR RF: 0 warfarin 5 mg Tablet 2.5 mg PO SUTUWETHSA RF: 0 metoprolol tartrate 50 mg Tablet 25 mg PO BID RF: 0 tadalafil [Cialis] 20 mg Tablet 20 mg PO DAILY PRN (Reason: Erectile Dysfunction) RF: 0 clopidogrel [Plavix] 75 mg Tablet 75 mg PO DAILY 30 Days Qty: 30 RF: 11 No Action lansoprazole 30 mg Capsule,Delayed Release(Dr/Ec) 30 mg PO DAILY RF: 0 Referrals: Warren Ortez MD [Primary Care Provider] - See Instructions (f/u with Dr. Warren Ortez in 1 week) Discharge Interventions Interventions: Discharge Planning - Case Management Last Done: 01/30/18 16:37 Status ED Status: Discharged
[2018-01-30 17:57] VITALS: BP 141/75
--- NOTE | 2018-01-30 18:06 | P.DCO ---
Diagnosis (1) Acute right MCA stroke: Status: Acute (2) Atrial fibrillation: Status: Chronic (3) Hypertension: Status: Chronic Physical Therapy Order: Evaluate and treat, Improve ambulation and Strength and gait training Home Health Nursing Order: Medical education, Signs/symptoms of disease process, Medication education-adverse effect and Nursing assessment with vital signs Case Management Consult Case Management Consult-Home Health: Yes I have seen patient Juan Brown on 01/30/18. My clinical findings support the need for the requested home health care services because: Limited mobility due to disease progression, Medication compliance is questionable, Limited ability to care for self, Need for psychosocial assistance and Impaired cognition/judgement I certify that my clinical findings support that this patient is homebound because: Impaired cognitive ability/safety, Unsteady gait/balance, Unsafe to leave home unassisted, Need for psychosocial assistance and Unable to use public transportation _ (1) Atrial fibrillation Qualifiers: Atrial fibrillation type: (2) Hypertension Qualifiers: Hypertension type:
[2018-01-30 18:08] VITALS: RESP 29; O2SAT 96
[2018-01-30 18:11] VITALS: PULSE 63
[2018-01-30] MEDS ORDERED: Metoprolol Tartrate 25 MG Tablet PO SCH (21:00)
== END 2018-01-30 19:30 | disposition home health service (06) ==
LOC: NEPE 01:01 → NEDA 02:55 → N03 04:15
PROVIDERS: ADMIT Internal Medicine; ATTEND Internal Medicine
DX: Z79.01 Long term (current) use of anticoagulants; R29.712 NIHSS score 12; J96.00 Acute respiratory failure, unspecified whether with hypoxia or hypercapnia; I63.511 Cerebral infarction due to unspecified occlusion or stenosis of right middle cerebral artery; G81.90 Hemiplegia, unspecified affecting unspecified side; I10 Essential (primary) hypertension; I48.2 Chronic atrial fibrillation